=== PATIENT | female | born 1950 | race African-American/Black ===

== ENCOUNTER 2017-11-13 19:26 | Emergency (ER) | payer MEDICARE, OTHER ==
[~2017-11-13] VITALS: Ht 170.2 cm; Wt 108.9 kg
[2017-11-13] MEDS ORDERED: ASPIRIN81 MG ORAL (19:34)
[2017-11-13] MEDS ORDERED: ASPIRIN300 MG RECTAL (19:34)
[2017-11-13 20:30] VITALS: BP 133/87
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
[2017-11-13 21:37] LABS: BASOPHILS % (AUTO) 2.1 % (0.0-2.0); EOSINOPHILS % (AUTO) 3.5 % (0.0-3.0); HEMATOCRIT 33.5 % (37.0-47.0); HEMOGLOBIN 10.4 G/DL (12.0-16.0); MEAN CORPUSCULAR VOLUME 88 FL (80-99); MONOCYTES % (AUTO) 8.6 % (1.0-10.0); NEUTROPHILS % (AUTO) 57.7 % (45.0-75.0); PLATELET COUNT 174 K/UL (150-450); RED BLOOD COUNT 3.82 M/UL (4.20-5.40); RED CELL DISTRIBUTION WIDTH 15.1 % (11.6-14.8); WHITE BLOOD COUNT 5.7 K/UL (4.8-10.8)
[2017-11-13 21:45] LABS: ANION GAP 11 mmol/L (5-15); BLOOD UREA NITROGEN 8 mg/dL (7-18); CALCIUM 8.2 MG/DL (8.5-10.1); CARBON DIOXIDE 23 MMOL/L (21-32); CHLORIDE 103 MMOL/L (98-107); CREATININE 0.7 MG/DL (0.55-1.30); POTASSIUM 4.2 MMOL/L (3.5-5.1); SODIUM 136 MMOL/L (136-145)
[2017-11-13 21:58] LABS: ALANINE AMINOTRANSFERASE 20 U/L (12-78); ALBUMIN 3.2 G/DL (3.4-5.0); ALBUMIN/GLOBULIN RATIO 0.6 (1.0-2.7); ALKALINE PHOSPHATASE 112 U/L (46-116); ASPARTATE AMINO TRANSFERASE 25 U/L (15-37); BILIRUBIN,TOTAL 0.3 MG/DL (0.2-1.0)
[2017-11-13] MEDS ORDERED: ceFAZolin 1gm/50ml Premix 50 ML IV ONE (22:00)
[2017-11-13] MEDS ORDERED: ceFAZolin sod 1 GM in D5W 55 ML IVPB ONE (22:00)
[2017-11-13] MEDS ORDERED: Tetanus/Diptheria/Pertussis Vaccine 0.5ml Syr IM ONE (22:00)
[2017-11-13 22:58] VITALS: BP 102/66
[2017-11-13 23:15] VITALS: BP 114/74
[2017-11-14 00:51] VITALS: BP 127/71
[2017-11-14 01:02] VITALS: BP 127/71
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
== END 2017-11-14 01:02 | disposition short-term general hospital (02) ==
LOC: EDBD 19:26 → EMR 20:10
DX: S09.8XXA Other specified injuries of head, initial encounter (principal); S00.81XA Abrasion of other part of head, initial encounter; S70.311A Abrasion, right thigh, initial encounter; S02.31XA Fracture of orbital floor, right side, initial encounter for closed fracture; X58.XXXA Exposure to other specified factors, initial encounter; Y92.410 Unspecified street and highway as the place of occurrence of the external cause; Z23 Encounter for immunization; E11.9 Type 2 diabetes mellitus without complications; Z59.0 Homelessness; F10.129 Alcohol abuse with intoxication, unspecified; H05.20 Unspecified exophthalmos; M50.31 Other cervical disc degeneration, high cervical region; E01.0 Iodine-deficiency related diffuse (endemic) goiter
CPT/HCPCS: 36415; 70450; 70486; 72125; 80053; 80307; 84443; 85025; 90471; 90715; 99285; G0480; J0690; 80329